=== PATIENT | female | born 1990 ===

== ENCOUNTER → 2020-04-25 | Outpatient (CLI) | payer MEDICAID | LOC: ZCOL.LAB 09:30 | DX: Z20.828 Contact with and (suspected) exposure to other viral communicable diseases (principal) ==

== ENCOUNTER 2020-04-29 02:34 | Inpatient (IN) | payer MEDICAID ==
[~2020-04-29] VITALS: Ht 165.1 cm; Wt 123.2 kg
[2020-04-29] VITALS (18 sets, daily range): BP systolic 126–176; BP diastolic 55–95; PULSE 49–71; TEMP 97.8–98.2
--- NOTE | 2020-04-29 05:30 | NUR ---
Pt ambulatory to scheduled with spouse. Clean gown on. EFM and TOCO explained and applied. Pt denies contractions, LOF or vaginal bleeding. Reports good movement. Pt states she is very anxious about the spinal and states "she started crying in the parking lot. 0547: IV started and labs obtained via IV start. LR bolus infusing without difficulties. Assessment and VS taken. Plan of care explained. Call light within reach.
[2020-04-29] MEDS ORDERED: PRENATAL TABLET PO (06:22)
[2020-04-29 06:26] LABS: BASO % 0.2 % (0.0-2.0); EOS # 0.1 (0.0-0.7); EOS % 0.8 % (0-4.0); GRAN # 5.4 (1.4-6.5); GRAN % 63.9 % (42.2-75.2); HEMATOCRIT 41.2 % (37.0-47.0); LYMPH # 2.3 (1.2-3.4); LYMPH % 27.2 % (20.0-51.0); MEAN CELL VOLUME 90 fl (80.0-100.0); MEAN CORPUSCULAR HEMOGLOBIN 30 pg (27.0-31.0); MEAN CORPUSCULAR HGB CONC 34 g/dl (33.0-37.0); MEAN PLATELET VOLUME 10.8 fl (7.4-10.4); MONO # 0.6 (0.1-0.6); MONO % 6.9 % (1.7-9.3); PLATELET COUNT 205 K/mm3 (130-400)
--- NOTE | 2020-04-29 06:38 | NUR ---
PT HERE FOR REPEAT . PT VERY ANXIOUS ABOUT SPINAL. DISCUSSED PLAN OF CARE AND INFORMED HER WILL TALK HER THROUGH THE SPINAL WHILE IT IS HAPPENING. ASSESSMENT COMPLETED. IV OF LR INFUSING WITHOUT DIFFICULTY IN RIGHT FOREARM. SECOND BAG OF LR HUNG AT 0635. QUESTIONS ANSWERED.
--- NOTE | 2020-04-29 08:45 | NUR ---
PT TO PACU AFTER DISCHARGE FROM OPERATING ROOM. PT AWAKE BUT TIRED. REPORTS SHE IS FEELING SOME PAIN ON THE RIGHT SIDE. CAN MOVE HER RIGHT LEG SLIGHTLY. ASSESSMENT COMPLETED. FUNDUS FIRM AND AT THE UMBILICUS WITH MINIMAL BLEEDING OBSERVED.
--- NOTE | 2020-04-29 09:03 | NUR ---
PT TO OR SUITE AT 0726 WITH FIANCE BY HER SIDE. PT POSITIONED SITTING ON BED. SPINAL PLACED BY ALLYSSA NG CRNA. PT POSITIONED LYING DOWN AFTER SPINAL WITH BLANKET WEDGE UNDER RIGHT HIP TO KEEP HER OFF HER BACK. CAUTERY PAD TO RIGHT THIGH. GRANT CATHETER PLACED. ABDOMEN PREPPED WITH DURAPREP. DELIVERY OF MALE AT [address] ARCHER AND DR GOMEZ. PLACENTA EXPRESSED AT 0757. REPAIR COMPLETE BY DR CASE. TAP BLOCK BY ELENA. PT CLEANED AND NEW SAMUEL PAD IN PLACE. TRANSFERRED TO POST OP BED AND TO PACU AT 0845.
--- NOTE | 2020-04-29 09:20 | NUR ---
PT TO ROOM AFTER DISCHARGE FROM PACU. REPORTING PAIN ESPECIALLY ON HER RIGHT SIDE. WILL GIVE HER MEDICATION ALONG WITH A SNACK.
--- NOTE | 2020-04-29 09:35 | NUR ---
TWO PERCOCET 5/325MG GIVEN AT 0930. APPLE JUICE, WATER, AND SALTINES GIVEN ALSO.
[2020-04-30 03:45] VITALS: BP 126/61; PULSE 52; TEMP 98.2
[2020-04-30 07:20] VITALS: BP 119/57; PULSE 64; TEMP 98.2
[2020-04-30 08:40] LABS: HEMOGLOBIN 12.5 g/dl (12.5-16.0)
[2020-04-30 08:41] LABS: HEMATOCRIT 36.7 % (37.0-47.0)
[2020-04-30] MEDS ORDERED: IBU600 MG PO (09:20)
[2020-04-30] MEDS ORDERED: PERCOCET 325 MG1 TA2 PO (09:21)
[2020-04-30 16:18] VITALS: BP 109/64; PULSE 60; TEMP 98.2
--- NOTE | 2020-04-30 18:20 | NUR ---
Report recieved. Sitting on bench attempting to breastfeed with the shield. Updated whiteboard and reviewed POC. Discussed feeding plan; would like to attempt to breastfeed then give a bottle. Videos to bedside for dad to watch. Denied further questions or concerns.
[2020-04-30 20:20] VITALS: BP 94/7; BP 94/72; PULSE 66; TEMP 97.9
[2020-05-01 08:00] VITALS: BP 119/67; PULSE 60; TEMP 98.1
== END 2020-05-01 12:35 | disposition home or self-care (01) | DRG 788 ==
LOC: OB 02:34
PROVIDERS: ADMIT Obstetrics & Gynecology
PROC: 10D00Z1 Extraction of Products of Conception, Low, Open Approach (ICD-10-PCS; principal; 2020-04-29)
DX: O34.211 Maternal care for low transverse scar from previous cesarean delivery (principal); O99.214 Obesity complicating childbirth; E66.9 Obesity, unspecified; O99.62 Diseases of the digestive system complicating childbirth; Z3A.39 39 weeks gestation of pregnancy; Z37.0 Single live birth; K21.9 Gastro-esophageal reflux disease without esophagitis
CPT/HCPCS: J0690; J1100; J1885; J2370; J2405; J2590; J2704; J3010; J7120